=== PATIENT | female | born 1970 | race Caucasian/White ===

== ENCOUNTER 2016-09-23 19:00 | Emergency (ER) | payer OTHER ==
[~2016-09-23] VITALS: Ht 160 cm; Wt 66.7 kg
[2016-09-23 20:58] VITALS: BP 148/98
== END 2016-09-23 20:59 | disposition home or self-care (01) ==
LOC: EME 19:00
DX: H10.11 Acute atopic conjunctivitis, right eye (principal); Z88.1 Allergy status to other antibiotic agents
CPT/HCPCS: 99281; 99284; J8540